=== PATIENT | female | born 1960 | race Caucasian/White ===

== ENCOUNTER → 2016-08-23 | Outpatient (CLI) | payer OTHER ==
[~2016-08-23] VITALS: Ht 162.6 cm; Wt 94.6 kg
[~2016-08-23] MED LIST: ACET-1256 PO; ATEN-175 PO; ATEN25TA PO; CALC-335 PO; CLX20 PO; HYDC25 PO; LOSA1TAB PO; PEDICHW50 PO; PSEU30TA20 PO; SERT1TAB68 PO; SERT50TA PO; SIMV20TA5 PO; SIMV40TA2 PO; TRCUNK PO; VITAMIN B12 INJ
[2016-08-23 16:36] VITALS: BP 117/73; PULSE 80; Ht 162.6 cm; Wt 94.6 kg
== END | disposition home or self-care (01) ==
LOC: C.NEUR 15:41
PROVIDERS: ATTEND Internal Medicine Pulmonary Disease
DX: G47.30 Sleep apnea, unspecified (principal)

== ENCOUNTER → 2016-11-22 | Outpatient (CLI) | payer OTHER ==
--- NOTE | 2016-11-22 16:13 | DIAGNOSTIC IMAGING REPORT ---
CT SCAN OF THE PARANASAL SINUSES CLINICAL HISTORY: Hypertrophy of the nasal turbinates. COMPARISON STUDY: No priors. TECHNIQUE: High-resolution CT scan of the paranasal sinuses is performed. Images are reviewed in the axial, sagittal, and coronal planes. IV contrast was not administered for this examination. The examination is performed using the fusion protocol. CT DOSE: 609.58 mGy.cm FINDINGS: Maxillary antra: Clear. Incomplete bony septations are seen bilaterally. Anterior ethmoid sinuses: Mild mucosal thickening is seen on the right, clear on the left. Posterior ethmoid sinuses: Clear. Sphenoid sinuses: Clear. Frontal sinuses: Mild mucosal thickening seen on the right. Clear on the left. Ostiomeatal complexes: Patent bilaterally. Frontoethmoidal and sphenoethmoidal recesses: Patent bilaterally. Carotid arteries: The carotid arteries are covered noting bilateral septal attachments. Ethmoid roofs: The ethmoid roofs are symmetric. Nasal turbinates: There is sahra bullosa of the left middle nasal turbinate. Nasal septum: There is rightward deviation of the bony nasal septum noting a leftward facing spur. Optic nerves: Covered. Orbits: The bony orbits are intact. Orbital contents are normal in appearance. Calvarium: The imaged calvarium is normal in appearance Mastoid air cells: Well pneumatized. Brain parenchyma: Partially visualized brain parenchyma is within normal limits. IMPRESSION: Minimal paranasal sinus disease. See above. Electronically signed by: Osoiro Cloud M.D. 11/22/2016 4:10 PM Dictated Date/Time: 11/22/2016 4:08 PM
== END | disposition home or self-care (01) ==
LOC: C.CTS 15:42
PROVIDERS: ATTEND Physician Assistant
DX: J34.2 Deviated nasal septum (principal); J32.9 Chronic sinusitis, unspecified; J34.3 Hypertrophy of nasal turbinates

== ENCOUNTER → 2016-12-23 | Outpatient (CLI) | payer OTHER ==
[2016-12-23 13:02] LABS: BASO % 0.3 %; BASO ABS # 0.02 K/uL (0-0.2); COMPLETE YES; EOS % 2.1 %; HEMATOCRIT 40.8 % (37-47); IG% 0.1 %; LYMPH % 35.6 %; LYMPH ABS # 2.42 K/uL (1.2-3.4); MEAN CELL VOLUME 91.5 fL (80-100); MEAN CORPUSCULAR HEMOGLOBIN 29.6 pg (25-34); MEAN CORPUSCULAR HGB CONC 32.4 g/dl (32-36); MONO % 5.9 %; PLATELET COUNT 336 K/uL (130-400); RED BLOOD COUNT 4.46 M/uL (4.2-5.4)
[2016-12-23 13:12] LABS: PROTHROMBIN TIME (PATIENT) 10.7 SECONDS (9.0-12.0)
== END | disposition home or self-care (01) ==
LOC: C.CPL 11:41
DX: Z01.818 Encounter for other preprocedural examination (principal)

== ENCOUNTER → 2017-01-07 | Day surgery (SDC) | payer OTHER ==
[2017-01-04 11:00] VITALS: Ht 162.6 cm; Wt 95.0 kg
[~2017-01-07] VITALS: Ht 162.6 cm; Wt 95.0 kg
[~2017-01-07] MED LIST changes: -ATEN-175 PO; +ATROPINE SULFATE 0.1 MG/ML 5ML SYR IV PRN; -CLX20 PO; +DEXAMETHASONE SOD INJ 4 MG/ML VIAL ONE; +EpHEDrine SULFATE INJ 50 MG/ML AMP IV PRN; +EpINEphrine INJ 1MG/ML AMP 1 MG/ML AMP ONE; +FENTANYL CITRATE INJ 50 MCG/1 ML 2 ML VIAL IV PRN; +FENTANYL CITRATE INJ 50 MCG/1 ML 2 ML VIAL ONE; +GLYCOPYRROLATE INJ 0.2 MG/ML VIAL ONE; -HYDC25 PO; +HYDROCODONE/ACETAMOPHEN 5/325MG TAB PO PRN; +LACTATED RINGER'S 1000ML 1,000 ML IV SCH; +LIDOCAINE 4% MPF SOAK 5 ML = 1 DOSE TOP ONE; +LIDOCAINE HCL 2% 2 ML VIAL (20MG/ML) ONE; +LIDOCAINE/EPINEPHRINE 1% INJ 50 ML VIAL ONE; +MIDAZOLAM HCL 1 MG/ML 2ML VIAL ONE; +NEOSTIGMINE METHYLSULFATE 5 MG/5 ML SYR ONE; +ONDANSETRON INJ 2 MG/ML 2 ML VIAL IV PRN; +ONDANSETRON INJ 2 MG/ML 2 ML VIAL ONE; +OXYMETAZOLINE HCL 0.05% NA SPR 15 ML BTL PRN; +OXYMETAZOLINE HCL 0.05% NA SPR 15 ML BTL SCH; +PROPOFOL IV EMULSION 10 MG/ML 20 ML VIAL IV ONE; -SIMV40TA2 PO; +SUCCINYLCHOLINE CHLORIDE 20 MG/ML 10 ML VIAL IV ONE; -TRCUNK PO
--- NOTE | 2017-01-07 12:21 | History & Physical Bridge - SC ---
H&P Re-Evaluation Bridge Note: I have examined the patient, reviewed the History & Physical and in the interval since the performance of the History & Physical I have noted the following changes of clinical significance: No changes noted
--- NOTE | 2017-01-07 12:24 | History and Physical: Surg Cnt ---
History & Physical Date Jan 07, 2017. Chief Complaint CHRONIC SINUSITIS, SEPTAL DEVIATION, BILATERAL INFERIOR TURBINATE HYPERTROPHY History of Present Illness The patient is a 56 year old female with complaints of CHRONIC SINUSITIS, SEPTAL DEVIATION, BILATERAL INFERIOR TURBINATE HYPERTROPHY Past Medical/Surgical History PMH: DYSLIPIDEMIA, HTN, MIGRAINES, OBESITY, ALESSANDRO PSH: S/P D&C, S/P ORAL SURGERY, S/P GASTRIC BYPASS, S/P WRIST SURGERY Additional History Hepatic Disease: No Endocrine Disorder: No Kidney Disease: No Hypertension: No Heart Disease: No Bleeding Tendencies: No Infectious Diseases: No Allergies Coded Allergies: Sulfa Antibiotics (Verified Allergy, Intermediate, RASH, 01/05/17) Clindamycin (Verified Allergy, Unknown, MAJOR RASH, 01/04/17) NSAIDs (Verified Allergy, Unknown, NOT ALLOWED TO TAKE D/T GASTRIC SX, 01/04) Uncoded Allergies: PCNS (Allergy, Unknown, rash, 01/07/17) Home Medications Scheduled Atenolol (Tenormin), 12.5 MG PO QAM Calcium Citrate-Vitamin D (Citracal Petites/Vitamin), 4 TAB PO DAILY Losartan Potassium (Cozaar), 25 MG PO QAM Pediatric Multiple Vitamin W/ (Flintstones Chewable), 1 TAB PO BID Sertraline Hcl (Zoloft), 1.5 TAB PO QAM Sertraline Hcl (Zoloft), 100 MG PO QAM Simvastatin (Zocor), 20 MG PO HS [Vitamin B12], 1 DOSE INJ MONTHLY Scheduled PRN Acetaminophen (Tylenol), 1 TAB PO Q8 PRN for PRN Pseudoephedrine (Sudafed), 30 MG PO TID PRN for PRN Physical Examination Skin: warm/dry, no rash Eyes: normal inspection, EOMI, sclerae normal ENT: + pertinent finding (R>L DNS, L>R ITH, L MTH) Head: normocephalic, atraumatic Neck: supple, no adenopathy, trachea midline Respiratory/Chest: lungs clear, normal breath sounds, no respiratory distress Cardiovascular: regular rate, rhythm, no edema, no murmur Neurologic/Psych: no motor/sensory deficits, alert, normal reflexes, oriented x 3 Diagnosis CHRONIC SINUSITIS, SEPTAL DEVIATION, BILATERAL INFERIOR TURBINATE HYPERTROPHY Plan of Treatment IMAGE-GUIDED B FESS/SEPTOPLASTY/INFERIOR TURBINATE REDUCTION
--- NOTE | 2017-01-07 13:09 | [facility] Operative Report ---
Operative Report Operative Date Jan 07, 2017. Pre-Operative Diagnosis Chronic Sinusitis, Nasal Septal Deviation Post-Operative Diagnosis Same Procedure(s) Performed Bilateral Endoscopic Sinus Surgery With Septoplasty And Bilateral Inferior Turbinate Outfracture And Turbinoplasty, Left Lalitha Bullosa Resection Surgeon Dr. Vianney Barnett Para Operator Surgeon(s) None Estimated Blood Loss 5ML Findings 1. R>L DNS 2. L>R ITH 3. L LALITHA BULLOSA 4. MILD MUCOSAL THICKENING OF RIGHT FRONTAL AND ETHMOID SINUSES Specimens NONE I attest to the content of the Intraoperative Record and any orders documented therein. Any exceptions are noted below.
--- NOTE | 2017-01-07 13:12 | Discharge Instructions ---
Discharge Instructions Date of Service Jan 07, 2017. Admission Reason for Admission: Chronic Sinusitis, Nasal Septal Deviation, Nasal T Discharge Discharge Diagnosis / Problem: SAME Discharge Goals Goal(s): Therapeutic intervention Activity Recommendations Activity Limitations: as noted below NO NOSE BLOWING FOR 2WKS; LIGHT ACTIVITY FOR 2WKS; NO DRIVING WHILE ON NORCO . Current Hospital Diet Patient's current hospital diet: Discharge Diet Recommended Diet: Regular Diet Procedures Procedures Performed: Bilateral Endoscopic Sinus Surgery With Septoplasty And Bilateral Inferior Turbinate Outfracture And Turbinoplasty, Left Lalitha Bullosa Resection Pending Studies Studies pending at discharge: no Medical Emergencies . Who to Call and When: Medical Emergencies: If at any time you feel your situation is an emergency, please call 911 immediately. . Non-Emergent Contact Non-Emergency issues call your: Surgeon . . "Provider Documentation" section prepared by Tucker Barnett. . VTE Core Measure Inpt VTE Proph given/why not?: SCD's
[2017-01-07 13:50] VITALS: PULSE 66; TEMP 36.5; O2SAT 93
[2017-01-07 13:52] VITALS: BP 150/89
--- NOTE | 2017-01-07 13:56 | OPERATIVE REPORT ---
DATE OF OPERATION: 01/07/2017 PREOPERATIVE DIAGNOSES: 1. Chronic rhinosinusitis. 2. Left sahra bullosa. 3. Septal deviation. 4. Bilateral inferior turbinate hypertrophy. POSTOPERATIVE DIAGNOSES: 1. Chronic rhinosinusitis. 2. Left shara bullosa. 3. Septal deviation. 4. Bilateral inferior turbinate hypertrophy. PROCEDURES: Image guided bilateral endoscopic sinus surgery consisting of: 1. Endoscopic left sahra bullosa resection. 2. Right maxillary antrostomy. 3. Right anterior ethmoidectomy. 4. Balloon sinuplasty assisted right frontal sinusotomy. 5. Septoplasty. 6. Bilateral inferior turbinate outfracture and turbinoplasty. SURGEON: Dr. Barnett. ANESTHESIA: General endotracheal. ESTIMATED BLOOD LOSS: 5 mL. FINDINGS: 1. Left sahra bullosa. 2. Right greater than left septal deviation with anterosuperior right septal deviation and posterior inferior left septal deviation. 3. Left greater than right inferior turbinate hypertrophy. 4. Mild mucosal thickening involving the right frontal and ethmoid sinus. SPECIMENS: None. COMPLICATIONS: None. INDICATIONS FOR THE PROCEDURE: The patient is a 56-year-old female with the above-mentioned history which has been unresponsive to maximal medical therapy including antibiotics and steroids. She presents for the above-mentioned procedures on an outpatient elective basis. OPERATION AND FINDINGS: DETAILS OF PROCEDURE: After informed consent had been obtained from the patient, the patient was wheeled to the operating room and placed on the operating table in the supine position. Monitors were placed. After induction of general endotracheal anesthesia, the patient was prepped in usual fashion for image guided sinus surgery. The [email or web address] navigation headset was placed over the forehead and was registered, calibrated and verified and used for the frontal sinus portion of the case. Lidocaine and epinephrine pledgets were placed in the bilateral nasal cavities and pressure applied. The left side pledgets were removed. The left middle turbinate was injected with 1% lidocaine with 1:100,000 epinephrine. A sickle knife was then used to incise the left middle turbinate longitudinally and the lateral half of the middle turbinate was removed using straight Isma-Cut forceps and powered instrumentation. A [place] elevator was then used to medialize the right middle turbinate. The uncinate process, lateral nasal wall, and middle turbinate were then injected with 1% lidocaine with 1:100,000 epinephrine. A [place] elevator was used to incise the uncinate process which was removed using straight Isma-Cut forceps and powered instrumentation. The natural ostium of the right maxillary sinus was identified and this was enlarged anteriorly, inferiorly, and posteriorly using straight Isma-Cut forceps and powered instrumentation. An anterior ethmoidectomy was then performed using powered instrumentation. Using the navigation system and a curved frontal sinus suction, the frontal sinus was cannulated. A frontal sinus balloon was then inserted and inflated to 12 atmospheres of pressure in 2 different locations to dilate the frontal recess tract. Powered instrumentation was then used to remove polypoid tissues which was blocking the right frontal ethmoid recess. The septum was then injected with 1% lidocaine with 1:100,000 epinephrine. A #15 scalpel was used to make a left [place] incision through which a left-sided mucoperichondrial mucoperiosteal flap was elevated. A #15 scalpel was then used to incise the quadrangular cartilage with care to preserve a 1.5 cm dorsal and caudal strut and a right-sided mucoperichondrial mucoperiosteal flap was elevated through this cartilaginous incision. A Tara sickle knife was then used to remove the deviated portions of quadrangular cartilage. [place]-Mejias forceps was then used to remove further septal cartilage superiorly as well as septal bone posteriorly which was impinging on the airway on the right hand side. A V-shaped osteotome, mallet, and Iris forceps was then used to remove bony septal spur which was impinging on the airway on the left side posteroinferiorly. The septum was at midline. The septal cavity was suctioned. The left [place] incision was closed with several simple interrupted 4-0 chromic sutures. A 4-0 plain gut suture on a Buster needle was then used to perform a quilting stitch over the mucoperichondrial mucoperiosteal flaps bilaterally to help prevent septal hematoma. Inferior turbinates were then infractured then subsequently outfractured using a William elevator. The inferior turbinates were injected with 1% lidocaine with 1:100,000 epinephrine. A 2.0 mm turbinate blade using powered instrumentation was then used to perform bilateral inferior turbinoplasties in a submucosal fashion. The sinonasal cavities and nasopharynx were then suctioned. Merogel was then placed into the right ethmoid sinus and left middle meatus and sahra bullosa resection site. An orogastric tube was placed and the stomach was suctioned free air and stomach contents. This marked the end of the case. The patient tolerated the procedure well. There were no apparent complications. The patient was extubated and transferred to recovery room in stable condition. I attest to the content of the Intraoperative Record and any orders documented therein. Any exception s are noted below.
--- NOTE | 2017-01-07 14:06 | Anesthesia Progress Nt - [facility] ---
Anesthesia Post Op Note Date & Time Jan 07, 2017 at 14:06 Vital Signs Pain Intensity: 3 Vital Signs Past 12 Hours Date Time Temp Pulse Resp B/P (MAP) Pulse Ox O2 Delivery O2 Flow Rate FiO2 01/07/17 13:52 150/89 01/07/17 13:50 36.5 66 12 150/89 93 Room Air 01/07/17 13:49 72 18 01/07/17 13:49 73 18 94 01/07/17 13:48 68 17 93 01/07/17 13:48 68 17 01/07/17 13:47 142/84 01/07/17 13:43 68 14 94 01/07/17 13:43 68 14 01/07/17 13:42 152/80 01/07/17 13:38 72 15 100 01/07/17 13:38 73 15 01/07/17 13:37 149/86 01/07/17 13:33 78 16 95 01/07/17 13:33 78 16 01/07/17 13:32 165/83 01/07/17 13:30 157/70 01/07/17 13:28 79 16 01/07/17 13:28 79 16 99 01/07/17 13:27 157/70 01/07/17 13:26 83 16 99 01/07/17 13:26 83 16 01/07/17 13:22 183/89 01/07/17 13:21 82 17 99 01/07/17 13:21 82 17 01/07/17 13:20 160/88 01/07/17 13:18 183/95 01/07/17 13:16 36.3 91 12 160/88 98 Humidified Oxygen 6 Diffusion Mask 01/07/17 10:48 36.8 66 20 155/107 (123) 98 Room Air 140/77 (98) Notes Mental Status: alert / awake / arousable, participated in evaluation Pt Amnestic to Procedure: Yes Nausea / Vomiting: adequately controlled Pain: adequately controlled Airway Patency, RR, SpO2: stable & adequate BP & HR: stable & adequate Hydration State: stable & adequate Anesthetic Complications: no major complications apparent
== END | disposition home or self-care (01) ==
LOC: X.SURG 10:30
DX: J34.2 Deviated nasal septum (principal); J32.9 Chronic sinusitis, unspecified; E78.5 Hyperlipidemia, unspecified; I10 Essential (primary) hypertension; E66.9 Obesity, unspecified; G47.33 Obstructive sleep apnea (adult) (pediatric); Z98.84 Bariatric surgery status; Z79.899 Other long term (current) drug therapy

== ENCOUNTER → 2017-09-02 | Outpatient (CLI) | payer OTHER ==
[~2017-09-02] MED LIST changes: -ATROPINE SULFATE 0.1 MG/ML 5ML SYR IV PRN; -DEXAMETHASONE SOD INJ 4 MG/ML VIAL ONE; -EpHEDrine SULFATE INJ 50 MG/ML AMP IV PRN; -EpINEphrine INJ 1MG/ML AMP 1 MG/ML AMP ONE; -FENTANYL CITRATE INJ 50 MCG/1 ML 2 ML VIAL IV PRN; -FENTANYL CITRATE INJ 50 MCG/1 ML 2 ML VIAL ONE; -GLYCOPYRROLATE INJ 0.2 MG/ML VIAL ONE; -HYDROCODONE/ACETAMOPHEN 5/325MG TAB PO PRN; -LACTATED RINGER'S 1000ML 1,000 ML IV SCH; -LIDOCAINE 4% MPF SOAK 5 ML = 1 DOSE TOP ONE; -LIDOCAINE HCL 2% 2 ML VIAL (20MG/ML) ONE; -LIDOCAINE/EPINEPHRINE 1% INJ 50 ML VIAL ONE; -MIDAZOLAM HCL 1 MG/ML 2ML VIAL ONE; -NEOSTIGMINE METHYLSULFATE 5 MG/5 ML SYR ONE; -ONDANSETRON INJ 2 MG/ML 2 ML VIAL IV PRN; -ONDANSETRON INJ 2 MG/ML 2 ML VIAL ONE; -OXYMETAZOLINE HCL 0.05% NA SPR 15 ML BTL PRN; -OXYMETAZOLINE HCL 0.05% NA SPR 15 ML BTL SCH; -PROPOFOL IV EMULSION 10 MG/ML 20 ML VIAL IV ONE; -SUCCINYLCHOLINE CHLORIDE 20 MG/ML 10 ML VIAL IV ONE
--- NOTE | 2017-09-02 08:32 | DIAGNOSTIC IMAGING REPORT ---
FUSION CT SINUSES W/O CLINICAL HISTORY: S09.92XA Nasal trauma, nasal turbinate hypertrophy. COMPARISON STUDY: 11/22/2016 FINDINGS: Imaging was performed in the axial and coronal planes. No orbital masses are visualized. The visualized portions of the intracranial contents are unremarkable. The mastoids are symmetrically aerated. The middle ear cavities appear well aerated. There is pansinus mucosal thickening most pronounced within the right maxillary sinus. The ethmoid notches are unprotected bilaterally. The olfactory fossa is measure 4.2 mm in depth bilaterally. Postsurgical changes are present. The created right nasomaxillary apertures is widely patent. There is been partial section of the left middle turbinate. There is left-sided infundibular narrowing. There is a nondisplaced nasal bone fracture which developed since the prior study. IMPRESSION: 1. Postsurgical changes 2. Infundibular narrowing of the left ostiomeatal unit 3. Pansinus mucosal thickening most pronounced within the right maxillary sinus 4. Nondisplaced nasal bone fracture which has developed since the preceding study Electronically signed by: Grzegorz Power M.D. 09/02/2017 8:31 AM Dictated Date/Time: 09/02/2017 8:16 AM
== END | disposition home or self-care (01) ==
LOC: C.CTS 07:57
DX: S02.2XXA Fracture of nasal bones, initial encounter for closed fracture (principal); X58.XXXA Exposure to other specified factors, initial encounter; Q24.3 Pulmonary infundibular stenosis

== ENCOUNTER → 2017-09-13 | Outpatient (CLI) | payer OTHER ==
--- NOTE | 2017-09-14 15:24 | MAMMOGRAPHY REPORT ---
BILATERAL DIGITAL SCREENING MAMMOGRAM TOMOSYNTHESIS WITH CAD: 09/13/2017 CLINICAL HISTORY: Routine screening. Patient has no complaints. TECHNIQUE: Breast tomosynthesis in addition to standard 2D mammography was performed. Current study was also evaluated with a Computer Aided Detection (CAD) system. COMPARISON: Comparison is made to exams dated: 06/11/2016 mammogram, 06/09/2015 mammogram, 05/29/2014 mammogram, 05/23/2013 mammogram, 04/12/2012 mammogram, and 04/07/2011 mammogram - [facility]. BREAST COMPOSITION: There are scattered areas of fibroglandular density in both breasts. FINDINGS: The parenchymal pattern is unchanged. No developing mass, architectural distortion or clus ter of suspicious microcalcifications is seen in either breast. IMPRESSION: ACR BI-RADS CATEGORY 2: BENIGN There is no mammographic evidence of malignancy. A 1 year screening mammogram is recommended. The pa tient will receive written notification of the results. Approximately 10% of breast cancers are not detected with mammography. A negative mammographic report should not delay biopsy if a clinically suggestive mass is present. Jory Blackwell M.D. ay/:09/13/2017 16:38:27 Hybrid Tester: Sarah Beth HUBBARD(Kareem)(M), [facility] letter sent: Normal 1/2 BI-RADS Code: ACR BI-RADS Category 2: Benign
== END | disposition home or self-care (01) ==
LOC: C.MAMM 15:58
PROVIDERS: ATTEND Obstetrics & Gynecology
DX: Z12.31 Encounter for screening mammogram for malignant neoplasm of breast (principal)

== ENCOUNTER → 2017-09-27 | Outpatient (CLI) | payer OTHER ==
[~2017-09-27] VITALS: Ht 162.6 cm; Wt 98.7 kg
[2017-09-27 15:04] VITALS: BP 131/81; PULSE 80; Ht 162.6 cm; Wt 98.7 kg
== END | disposition home or self-care (01) ==
LOC: C.NEUR 14:52
PROVIDERS: ATTEND Physician Assistant Medical
DX: G47.30 Sleep apnea, unspecified (principal); S09.92XA Unspecified injury of nose, initial encounter; J32.9 Chronic sinusitis, unspecified; E78.00 Pure hypercholesterolemia, unspecified; I10 Essential (primary) hypertension; L90.0 Lichen sclerosus et atrophicus

== ENCOUNTER → 2017-11-18 | Outpatient (CLI) | payer OTHER ==
--- NOTE | 2017-11-18 17:39 | DIAGNOSTIC IMAGING REPORT ---
R WRIST MIN 3 VIEWS ROUTINE HISTORY: 57 years-old Female PAIN IN RIGHT WRIST, AND PAIN IN LEFT FINGER acute right wrist pain COMPARISON: None available TECHNIQUE: 4 views of the right wrist FINDINGS: Mild first carpometacarpal osteoarthritis. No acute fracture or dislocation. No opaque foreign body. IMPRESSION: No acute fracture or dislocation. The above report was generated using voice recognition software. It may contain grammatical, syntax or spelling errors. Electronically signed by: Nico Chanel M.D. 11/18/2017 5:38 PM Dictated Date/Time: 11/18/2017 5:37 PM
--- NOTE | 2017-11-18 17:39 | DIAGNOSTIC IMAGING REPORT ---
L WRIST MIN 3 VIEWS ROUTINE CLINICAL HISTORY: PAIN IN RIGHT WRIST, AND PAIN IN LEFT FINGER pain COMPARISON: None. DISCUSSION: The bones and joint spaces appear intact. There is no evidence of fracture, dislocation or bony disease. Minimal degenerative change of the articular services. No evidence for fracture. IMPRESSION: Minimal degenerative change. No acute process. The above report was generated using voice recognition software. It may contain grammatical, syntax or spelling errors. Electronically signed by: Matt Shankar M.D. 11/18/2017 5:37 PM Dictated Date/Time: 11/18/2017 5:37 PM
--- NOTE | 2017-11-18 17:40 | DIAGNOSTIC IMAGING REPORT ---
L FINGER(S) MIN 2 VIEWS ROUTINE HISTORY: 57 years-old Female PAIN IN RIGHT WRIST, AND PAIN IN LEFT FINGER acute left thumb pain COMPARISON: Left wrist radiographs of same day TECHNIQUE: 3 views of the left thumb FINDINGS: Mild degenerative changes about the first carpal metacarpal, metacarpophalangeal and interphalangeal joints. No acute fracture, dislocation or evidence of acute avulsion fracture. Soft tissues are within normal limits. IMPRESSION: Mild degenerative changes without acute fracture or dislocation. The above report was generated using voice recognition software. It may contain grammatical, syntax or spelling errors. Electronically signed by: Nico Chanel M.D. 11/18/2017 5:39 PM Dictated Date/Time: 11/18/2017 5:38 PM
== END ==
LOC: C.RAD 16:55
PROVIDERS: ATTEND Nurse Practitioner Family
DX: M25.531 Pain in right wrist (principal); M19.042 Primary osteoarthritis, left hand

== ENCOUNTER → 2018-02-24 | Day surgery (SDC) | payer OTHER ==
[2018-01-25 08:38] VITALS: Ht 162.6 cm; Wt 98.2 kg
[2018-02-14 17:52] LABS: BASO % 0.3 %; BASO ABS # 0.02 K/uL (0-0.2); EOS % 4.4 %; EOS ABS # 0.29 K/uL (0-0.5); HEMATOCRIT 39.9 % (37-47); HEMOGLOBIN 12.9 g/dL (12.0-16.0); LYMPH % 47.8 %; LYMPH ABS # 3.13 K/uL (1.2-3.4); MEAN CELL VOLUME 90.5 fL (80-100); MEAN CORPUSCULAR HEMOGLOBIN 29.3 pg (25-34); MEAN CORPUSCULAR HGB CONC 32.3 g/dl (32-36); MEAN PLATELET VOLUME 9.9 fL (7.4-10.4); MONO % 6.3 %; MONO ABS # 0.41 K/uL (0.11-0.59); NEUT % 41.2 %; PLATELET COUNT 293 K/uL (130-400); RED CELL DISTRIBUTION WIDTH CV 12.9 % (11.5-14.5); RED CELL DISTRIBUTION WIDTH SD 42.9 fL (36.4-46.3); WHITE BLOOD COUNT 6.55 K/uL (4.8-10.8)
[2018-02-14 18:13] LABS: PTT PATIENT 26.6 SECONDS (21.0-31.0)
[~2018-02-24] VITALS: Ht 162.6 cm; Wt 98.2 kg
[~2018-02-24] MED LIST changes: -ATEN25TA PO; +ATROPINE SULFATE 0.1 MG/ML 5ML SYR IV PRN; +DEXAMETHASONE SOD INJ 4 MG/ML VIAL ONE; +EpHEDrine SULFATE INJ 50 MG/ML AMP IV PRN; +EpINEphrine INJ 1MG/ML AMP 1 MG/ML AMP ONE; +FENTANYL CITRATE INJ 50 MCG/1 ML 2 ML VIAL IV PRN; +FENTANYL CITRATE INJ 50 MCG/1 ML 2 ML VIAL ONE; +FLUT0.15; +HYDROCODONE/ACETAMIN 5/325MG TAB PO PRN; +LACTATED RINGER'S 1000ML 1,000 ML IV SCH; +LIDOCAINE 4% MPF SOAK 5 ML = 1 DOSE ONE; +LIDOCAINE HCL 2% 2 ML VIAL (20MG/ML) ONE; +LIDOCAINE/EPINEPHRINE 1% 20 ML VIAL ONE; +MIDAZOLAM HCL 1 MG/ML 2ML VIAL ONE; +ONDANSETRON INJ 2 MG/ML 2 ML VIAL IV PRN; +ONDANSETRON INJ 2 MG/ML 2 ML VIAL ONE; +OXYMETAZOLINE HCL 0.05% NA SPR 15 ML BTL PRN; +OXYMETAZOLINE HCL 0.05% NA SPR 15 ML BTL SCH; +PROPOFOL IV EMULSION 10 MG/ML 20 ML VIAL ONE; +ROCURONIUM BROMIDE 10 MG/ML 5 ML VIAL ONE; +SUCCINYLCHOLINE CHLORIDE 20 MG/ML 10 ML VIAL IV ONE; +ZOLP5TAB PO
--- NOTE | 2018-02-24 09:49 | History and Physical: Surg Cnt ---
History & Physical Date Feb 24, 2018. Chief Complaint RIGHT CHRONIC SINUSITIS S/P BILATERAL FESS IN THE PAST History of Present Illness The patient is a 57 year old female with RIGHT CHRONIC SINUSITIS S/P BILATERAL FESS IN THE PAST WITH SYMPTOMS DESPITE MAXIMAL MEDICAL RX. Past Medical/Surgical History PMH: ABOVE, ALESSANDRO, OBESITY, HTN, DYSLIPIDEMIA, MIGRAINES PSH: ABOVE, S/P D&C, S/P GASTRIC BYPASS, S/P WRIST GANGLION CYST REMOVAL, S/ P ORAL SURGERY Additional History Hepatic Disease: No Endocrine Disorder: No Kidney Disease: No Hypertension: No Heart Disease: No Bleeding Tendencies: No Infectious Diseases: No Allergies Coded Allergies: Penicillins (Verified Allergy, Intermediate, RASH, 02/24/18) Sulfa Antibiotics (Verified Allergy, Intermediate, RASH, 02/24/18) Clindamycin (Verified Allergy, Unknown, MAJOR RASH, 02/24/18) NSAIDs (Verified Allergy, Unknown, NOT ALLOWED TO TAKE D/T GASTRIC SX, ) Lisinopril (Verified Adverse Reaction, Unknown, COUGH, 02/24/18) Home Medications Scheduled Calcium Citrate-Vitamin D (Citracal Petites/Vitamin), 4 TAB PO DAILY Fluticasone Propionate (Nasal) (Flonase Allergy Relief), 1 SPRAY NA BID Losartan Potassium (Cozaar), 50 MG PO QAM Pediatric Multiple Vitamin W/ (Flintstones Chewable), 1 TAB PO BID Sertraline Hcl (Zoloft), 2 TAB PO QAM Sertraline Hcl (Zoloft), 100 MG PO QAM Simvastatin (Zocor), 20 MG PO HS [Vitamin B12], 1 DOSE INJ EVERY 2 MONTHS Scheduled PRN Acetaminophen (Tylenol), 1 TAB PO Q8 PRN for PRN Pseudoephedrine (Sudafed), 30 MG PO TID PRN for PRN Zolpidem Tartrate (Ambien), 5 MG PO HS PRN for Insomnia Physical Examination Skin: warm/dry, no rash Eyes: normal inspection, EOMI, sclerae normal ENT: + pertinent finding (RIGHT MIDDLE MEATUS INFLAMMATION) Head: normocephalic Neck: supple, no adenopathy, trachea midline Respiratory/Chest: lungs clear, normal breath sounds, no respiratory distress Cardiovascular: regular rate, rhythm, no edema, no murmur Neurologic/Psych: no motor/sensory deficits, alert, normal reflexes, oriented x 3 Diagnosis RIGHT CHRONIC SINUSITIS S/P BILATERAL FESS IN THE PAST Plan of Treatment REVISION RIGHT FESS
--- NOTE | 2018-02-24 11:01 | [facility] Operative Report ---
Operative Report Operative Date Feb 24, 2018. Pre-Operative Diagnosis Right Chronic Sinusitis, S/P Bilateral FESS Post-Operative Diagnosis same Procedure(s) Performed Right Endoscopic Revision Image Guided Sinus Surgery Surgeon Dr. Vianney Barnett Slot Machine Department Floorperson Surgeon(s) 0 Estimated Blood Loss 5ml Findings 1. SMALL AMOUNT OF RESIDUAL UNCINATE PROCESS AND SYNECHIA BLOCKING PREVIOUS R MAXILLARY ANTROSTOMY AND ETHMOID CAVITY; MILD MUCOID DRAINAGE IN R MAXILLARY SINUS Specimens None Anesthesia Type General I attest to the content of the Intraoperative Record and any orders documented therein. Any exceptions are noted below.
--- NOTE | 2018-02-24 11:02 | Discharge Instructions ---
Discharge Instructions Date of Service Feb 24, 2018. Admission Reason for Admission: Chronic Sinusitis Discharge Discharge Diagnosis / Problem: SAME Discharge Goals Goal(s): Therapeutic intervention Activity Recommendations Activity Limitations: as noted below LIGHT ACTIVITY FOR 2 WEEKS; NO DRIVING WHILE ON NORCO . Current Hospital Diet Patient's current hospital diet: Discharge Diet Recommended Diet: Regular Diet Procedures Procedures Performed: Right Endoscopic Revision Image Guided Sinus Surgery Pending Studies Studies pending at discharge: no Medical Emergencies . Who to Call and When: Medical Emergencies: If at any time you feel your situation is an emergency, please call 911 immediately. . Non-Emergent Contact Non-Emergency issues call your: Surgeon, Urologist . . "Provider Documentation" section prepared by Tucker Barnett. .
--- NOTE | 2018-02-24 11:34 | Anesthesia Progress Nt - [facility] ---
Anesthesia Post Op Note Date & Time Feb 24, 2018 at 11:34 Vital Signs Pain Intensity: 0 Vital Signs Past 12 Hours Date Time Temp Pulse Resp B/P (MAP) Pulse Ox O2 Delivery O2 Flow Rate FiO2 02/24/18 11:16 122/85 02/24/18 11:14 87 13 02/24/18 11:14 86 13 95 02/24/18 11:14 36.4 88 16 143/94 97 Humidified Oxygen 6 Mask 02/24/18 08:51 36.9 67 18 136/91 (106) 94 Room Air Notes Mental Status: alert / awake / arousable, participated in evaluation Pt Amnestic to Procedure: Yes Nausea / Vomiting: adequately controlled Pain: adequately controlled Airway Patency, RR, SpO2: stable & adequate BP & HR: stable & adequate Hydration State: stable & adequate Anesthetic Complications: no major complications apparent
[2018-02-24 11:49] VITALS: TEMP 36.4
[2018-02-24 12:12] VITALS: BP 131/81; PULSE 84; O2SAT 97
--- NOTE | 2018-02-24 12:18 | OPERATIVE REPORT ---
DATE OF OPERATION: 02/24/2018 PREOPERATIVE DIAGNOSIS: Right chronic sinusitis status post endoscopic sinus surgery in the past. POSTOPERATIVE DIAGNOSIS: Right chronic sinusitis status post endoscopic sinus surgery in the past. PROCEDURE: Image-guided revision right maxillary antrostomy and right complete ethmoidectomy. SURGEON: Tucker Barnett MD ANESTHESIA: General endotracheal. ESTIMATED BLOOD LOSS: 5 mL. FINDINGS: 1. Small amount of residual uncinate process and synechia blocking the previous right maxillary antrostomy and complete ethmoid cavity. 2. Mild amount of mucoid drainage from the right maxillary sinus. SPECIMENS: None. COMPLICATIONS: None. INDICATIONS FOR THE PROCEDURE: The patient is a 57-year-old female with the above-mentioned history who presents for the above-mentioned procedure on an outpatient elective basis. DETAILS OF PROCEDURE: After informed consent had been obtained from the patient, the patient was wheeled to the operating room and placed on the operating table in the supine position. Monitors were placed. After induction of general endotracheal anesthesia, the patient was prepped in the usual fashion for image-guided endoscopic sinus surgery. The GLO headset was placed over the forehead and was registered, calibrated, and verified and used throughout the case. Lidocaine and epinephrine pledgets were placed into the right middle meatus. The right pledget was removed. A freer elevator was used to medialize the middle turbinate. There was a small amount of synechia that had to be lysed using the freer elevator. There was a small amount of residual uncinate process as well as the synechia that was blocking the right maxillary antrostomy and complete ethmoidectomy. This was removed using powered instrumentation. The medial aspect of the right middle turbinate as well as the adjacent nasal septum was then microdebrided to perform "bolgerization" of the right middle turbinate. The previous maxillary antrostomy was enlarged anteriorly, inferiorly, and posteriorly using powered instrumentation and backbiting forceps. A revision complete ethmoidectomy was then performed. There was some synechiae and polypoid tissue that was removed using powered instrumentation. The right sinonasal cavities were then suctioned. Merogel was then placed into the right ethmoid sinus/middle meatus. An orogastric tube was placed and the stomach was suctioned free of air and stomach contents. This marked the end of the case. The patient tolerated the procedure well and there were no apparent complications. The patient was extubated and transferred to recovery room in stable condition. I attest to the content of the Intraoperative Record and any orders documented therein. Any exception s are noted below.
== END | disposition home or self-care (01) ==
LOC: X.SURG 08:21
DX: J32.9 Chronic sinusitis, unspecified (principal); Z98.890 Other specified postprocedural states; G47.33 Obstructive sleep apnea (adult) (pediatric); I10 Essential (primary) hypertension; M19.90 Unspecified osteoarthritis, unspecified site; E66.9 Obesity, unspecified; Z88.0 Allergy status to penicillin; Z88.2 Allergy status to sulfonamides; Z88.1 Allergy status to other antibiotic agents; Z79.899 Other long term (current) drug therapy; Z68.37 Body mass index [BMI] 37.0-37.9, adult